=== PATIENT | female | born 1980 | race American Indian/Alaskan Native ===

== ENCOUNTER 2017-06-15 12:26 | Emergency (ER) | payer OTHER ==
[2017-06-15 12:35] VITALS: BMI 36.6
[2017-06-15 12:47] VITALS: BP 120/80; PULSE 97; RESP 18; TEMP 98.4; O2SAT 99
--- NOTE | 2017-06-15 13:16 | ED PDOC ---
Arrival/HPI - General Chief Complaint: ENT Problem Time Seen by Provider: 06/15/17 13:05 Historian: Patient - History of Present Illness Narrative History of Present Illness (Text): 06/15/17 13:13 This 37 yo female presents to this ED c/o tongue is swollen and painful since yesterday. Denies sob, sore throat, fever, cp, rash, recent travel or sick contact. Time/Duration: Other (1 day) Symptom Onset: Gradual Quality: Aching Context: Home Past Medical History - Provider Review Nursing Documentation Reviewed: Yes - Infectious Disease Hx of Infectious Diseases: None - Tetanus Immunization Tetanus Immunization: Unknown - Past Medical History Past Medical History: No Previous - Psychiatric Hx Substance Use: No - Past Surgical History Past Surgical History: No Previous - Surgical History Hx Cholecystectomy: Yes - Anesthesia Hx Anesthesia: Yes Hx Anesthesia Reactions: No Hx Malignant Hyperthermia: No - Suicidal Assessment Feels Threatened In Home Enviroment: No Family/Social History - Physician Review Nursing Documentation Reviewed: Yes Family/Social History: No Known Family HX Smoking Status: Never Smoked Hx Alcohol Use: No Hx Substance Use: No Hx Substance Use Treatment: No Allergies/Home Meds Allergies/Adverse Reactions: Allergies No Known Allergies Allergy (Verified 08/18/14 15:44) Review of Systems - Review of Systems Constitutional: Normal. absent: Fatigue, Weight Change, Fevers Eyes: Normal ENT: Other (tongue swelling and pain) Respiratory: Normal Cardiovascular: Normal Gastrointestinal: Normal Genitourinary Female: Normal Musculoskeletal: Normal Skin: Normal Neurological: Normal Endocrine: Normal Hemo/Lymphatic: Normal Psychiatric: Normal Physical Exam Vital Signs Temp Pulse Resp BP Pulse Ox 06/15/17 12:45 98.4 F 97 H 18 120/80 99 Temperature: Afebrile Blood Pressure: Normal Pulse: Regular Respiratory Rate: Normal Appearance: Positive for: Well-Appearing, Non-Toxic, Comfortable Pain Distress: None Mental Status: Positive for: Alert and Oriented X 3 - Systems Exam Head: Present: Atraumatic, Normocephalic Pupils: Present: PERRL Extroacular Muscles: Present: EOMI Conjunctiva: Present: Normal Ears: Present: Normal, NORMAL TM, Normal Canal. No: Erythema, TM Bulging Mouth: Present: Moist Mucous Membranes, Normal Lips. No: Drooling, Normal Tounge ((+) mild swelling along the course of tongue piercing. No drainage) Pharnyx: Present: Normal. No: ERYTHEMA, EXUDATE, TONSILS ENLARGED, Peritonsilar Swelling Neck: Present: Normal Range of Motion Respiratory/Chest: Present: Clear to Auscultation, Good Air Exchange. No: Respiratory Distress, Accessory Muscle Use Cardiovascular: Present: Regular Rate and Rhythm, Normal S1, S2. No: Murmurs Abdomen: Present: Normal Bowel Sounds. No: Tenderness, Distention, Peritoneal Signs Back: Present: Normal Inspection Upper Extremity: Present: Normal Inspection. No: Cyanosis, Edema Lower Extremity: Present: Normal Inspection. No: Edema Neurological: Present: GCS=15, CN II-XII Intact, Speech Normal Skin: Present: Warm, Dry, Normal Color. No: Rashes Psychiatric: Present: Alert, Oriented x 3, Normal Insight, Normal Concentration Medical Decision Making ED Course and Treatment: 06/15/17 13:18 patient noted she is breast feeding 06/15/17 13:26 Patient stated she will not breast feed her baby while taking her medication. She will use formula instead. 06/15/17 13:27 Patient removed tongue piercing. Tongue piercing orifice was flushed with NS. Patient was recommended to return to emergency immediately if she has dysphagia , sob, unable to drink or eat. Re-evaluation Time: 13:27 Reassessment Condition: Re-examined, Improved - Medication Orders Current Medication Orders: Discontinued Medications Amoxicillin/Clavulanate Potassium (Augmentin 875 Mg-125 Mg Tab) 1 tab PO STAT STA PRN Reason: Protocol Stop: 06/15/17 13:18 Last Admin: 06/15/17 13:35 Dose: 1 tab Ibuprofen (Motrin Tab) 600 mg PO STAT STA Stop: 06/15/17 13:27 Last Admin: 06/15/17 13:36 Dose: 600 mg Trimethoprim/Sulfamethoxazole (Bactrim Ds Tab) 1 tab PO STAT STA PRN Reason: Protocol Stop: 06/15/17 13:19 Last Admin: 06/15/17 13:35 Dose: 1 tab Disposition/Present on Arrival - Present on Arrival Any Indicators Present on Arrival: No History of DVT/PE: No History of Uncontrolled Diabetes: No Urinary Catheter: No History of Decub. Ulcer: No History Surgical Site Infection Following: None - Disposition Have Diagnosis and Disposition been Completed?: Yes Diagnosis: Pierced tongue infection Disposition: HOME/ ROUTINE Disposition Time: 13:28 Condition: GOOD Additional Instructions: Call ENT office for follow up visit in 1-2 days. Take medication as instructed. Return to emergency if symptoms worsen Prescriptions: Amoxicillin/Clavulanate [Augmentin 875 MG-125 MG] 1 tab PO BID #18 tab Fluconazole [Diflucan] 200 mg PO DAILY PRN #1 tab PRN Reason: Urinary Discomt Ibuprofen [Motrin] 600 mg PO Q8 PRN #20 tab PRN Reason: Pain, Severe (8-10) Sulfamethoxazole/Trimethoprim [Bactrim DS 800 mg-160 mg] 1 tab PO BID #18 tab Referrals: Paul Andres DO [Staff Provider] - Follow up with primary Forms: [employer] ([place])
[2017-06-15] MEDS ORDERED: Amoxicillin-Clav 875-125 mg Tab PO STA (13:17)
[2017-06-15] MEDS ORDERED: Tmp-Smz 800 mg-160 mg DS Tab PO STA (13:18)
== END 2017-06-15 14:15 | disposition home or self-care (01) ==
LOC: ED 12:26
DX: K14.0 Glossitis (principal)